=== PATIENT | male | born 1990 | race Caucasian/White ===

== ENCOUNTER 2017-10-13 10:30 | Emergency (ER) | payer SELFPAY ==
[2017-10-13 10:38] VITALS: BP 136/89; PULSE 105; TEMP 99.2; BMI 19.5
[2017-10-13] MEDS ORDERED: IBUPROFEN 600 MG TABLET (FP) PO ONE ×2 (10:54→10:58)
--- NOTE | 2017-10-13 11:11 | PDOC ---
History of Present Illness - General Chief Complaint: Cold Symptoms Stated Complaint: ACHES/ HEAD, JOINTS Time Seen by Provider: 10/13/17 10:54 - History of Present Illness Initial Comments: 10/13/17 10:55 CHIEF COMPLAINT: flu like symptoms HISTORY OF PRESENT ILLNESS: 26 yo M presents to [facility] with cough, runny nose, chills, and body aches since yesterday. Patient reports "I just woke up feeling terrible, but I went to work and it got a whole lot worse and they told me to go home since I cut fruit." Patient denies any vomiting or diarrhea and states he has not taken any medication. PAST MEDICAL HISTORY: Denies past medical history FAMILY HISTORY: Denies SOCIAL HISTORY: Smoker SURGICAL HISTORY: Denies ALLERGIES: No known drug allergies REVIEW OF SYSTEMS as per HPI PHYSICAL EXAM General Appearance: Well-appearing, appropriately dressed. No apparent distress , no intoxication. HEENT: Congestion, rhinorrhea. EOMI, PERRLA, normal ENT inspection, normal voice , TMs normal, pharynx normal. No conjunctival pallor. No photophobia, scleral icterus. Respiratory/Chest: Lungs CTAB. Cardiovascular: RRR. S1, S2. Gastrointestinal/Abdominal: Normal bowel sounds. Abdomen soft, non-distended. No tenderness or rebound tenderness. No organomegaly, pulsatile mass, guarding , hernia, hepatomegaly, splenomegaly. Musculoskeletal/Extremities: Normal inspection. FROM of all extremities, normal capillary refill. Pelvis Stable. No CVA tenderness. No tenderness to extremities, pedal edema, swelling, erythema or deformity. Integumentary: Appropriate color, dry, warm. No cyanosis, erythema, jaundice or rash Neurologic: tub mender II-XII intact. Fully oriented, alert. Appropriate mood/affect. Motor strength 5/5. No appreciable EOM palsy, facial droop or sensory deficit. Past History - Past Medical History Allergies/Adverse Reactions: Allergies Allergy/AdvReac Type Severity Reaction Status Date / Time No Known Allergies Allergy Verified 10/28/11 16:50 Home Medications: Ambulatory Orders Benzonatate [Tessalon Pearls -] 100 mg PO TID #21 capsule 10/13/17 Ibuprofen [Motrin -] 400 mg PO QID PRN #28 tablet 10/13/17 Oseltamivir Phosphate [Tamiflu] 75 mg PO BID #10 capsule 10/13/17 Pseudoephedrine HCl [Pseudoephedrine ER] 120 mg PO BID PRN #14 tablet.er CVA: No COPD: No DVT: No - Immunization History Immunization Up to Date: Yes - Suicide/Smoking/Psychosocial Hx Smoking Status: No Smoking History: Never smoked Number of Cigarettes Smoked Daily: 3 Information on smoking cessation initiated: No Hx Alcohol Use: No Drug/Substance Use Hx: No Substance Use Type: None *Physical Exam - Vital Signs Last Vital Signs Temp Pulse Resp BP Pulse Ox 99.2 F 105 H 18 136/89 99 10/13/17 10:35 10/13/17 10:35 10/13/17 10:35 10/13/17 10:35 10/13/17 10:35 Medical Decision Making - Medical Decision Making 10/13/17 11:11 26 yo M presents to [facility] with flu like symptoms. *DC/Admit/Observation/Transfer Diagnosis at time of Disposition: Flu-like symptoms - Discharge Dispostion Disposition: HOME Condition at time of disposition: Stable Admit: No - Prescriptions Prescriptions: Benzonatate [Tessalon Pearls -] 100 mg PO TID #21 capsule Ibuprofen [Motrin -] 400 mg PO QID PRN #28 tablet PRN Reason: fever/pain Oseltamivir Phosphate [Tamiflu] 75 mg PO BID #10 capsule Pseudoephedrine HCl [Pseudoephedrine ER] 120 mg PO BID PRN #14 tablet.er PRN Reason: congestion/runny nose - Referrals - Patient Instructions Printed Discharge Instructions: DI for Viral Syndrome Additional Instructions: Please take medications as prescribed. Drink plenty of fluids to stay hydrated. Follow up with your primary care doctor if symptoms persist past 5-7 days. If you develop any fever unrelieved by Motrin or Tylenol, any vomiting, diarrhea, or any new or worsening symptoms, please return to the ER. - Post Discharge Activity Forms/Work/School Notes: Back to Work
== END 2017-10-13 11:33 | disposition home or self-care (01) ==
LOC: JERFT 10:30
DX: J11.1 Influenza due to unidentified influenza virus with other respiratory manifestations (principal)
CPT/HCPCS: 99281-25